=== PATIENT | female | born 1975 | race Caucasian/White ===

== ENCOUNTER 2019-01-20 14:01 | Inpatient (IN) ==
[2019-01-20] MEDS ORDERED: SODIUM CHLORIDE 0.9% 1000ML 1,000 ML IV ONE (14:13)
[2019-01-20] MEDS ORDERED: MoRPHine SULFATE 4 MG/ML 1 ML CARP\\VIAL IV STA (14:13)
[2019-01-20] MEDS ORDERED: ONDANSETRON INJ 2 MG/ML 2 ML VIAL IV STA (14:13)
[2019-01-20 14:42] LABS: Basophils # (auto) 0.03 K/uL (0-0.2); Basophils % (auto) 0.2 %; Hematocrit (blood only) 42.3 % (37-47); Immature Granulocytes # (auto) 0.02 K/uL (0.00-0.02); Immature Granulocytes % (auto) 0.2 %; Lymphocytes # (auto) 0.99 K/uL (1.2-3.4); Lymphocytes % (auto) 7.6 %; Mean Corpuscular Hgb Conc 35.5 g/dL (32-36); Mean Corpuscular Volume 90.2 fL (80-100); Mean Platelet Volume 9.1 fL (7.4-10.4); Monocytes % (auto) 5.4 %; Neutrophils # (auto) 11.21 K/uL (1.4-6.5); Neutrophils % (auto) 86.6 %; Platelet Count 356 K/uL (130-400); RDW Coefficient of Variation 12.7 % (11.5-14.5); RDW Standard Deviation 41.9 fL (36.4-46.3); Red Blood Count 4.69 M/uL (4.2-5.4); White Blood Count 12.95 K/uL (4.8-10.8)
[2019-01-20 15:07] LABS: BUN Creatinine Ratio 15.1 (10-20); Bilirubin Direct 0.1 mg/dl (0-0.2); Creatinine Clr Calc Pharmacy 111.4 ml/min; Est GFR (African American) 127.6; Est GFR (Non-African American) 110.1; Potassium 3.4 mmol/L (3.5-5.1)
[2019-01-20] MEDS ORDERED: KETOROLAC TROMETHAMINE 15 MG/ML VIAL IV STA (15:09)
[2019-01-20 15:10] LABS: Bilirubin,Total 0.5 mg/dl (0.2-1)
[2019-01-20] MEDS ORDERED: HYDROmorphone INJ 1 MG/ML SYRINGE IV STA (15:27)
[2019-01-20] MEDS ORDERED: SODIUM CHLORIDE 0.9% 1000ML 1,000 ML IV SCH (15:30)
--- NOTE | 2019-01-20 15:34 | XRay Report ---
PA CHEST WITH ABDOMINAL SERIES CLINICAL HISTORY: Epigastric abdominal pain. Nausea and vomiting. FINDINGS: A PA chest radiograph is obtained. No prior studies are available for comparison at the time of dicta tion. The cardiomediastinal silhouette is unremarkable. The lungs and pleural spaces are clear. No p neumothorax is seen. The bony thorax is grossly intact. Supine and erect abdominal radiographs are obtained. No prior studies are available for comparison at the time of dictation. There is a nonobstructed abdominal bowel gas pattern. No evidence of intrape ritoneal free air is seen. There are no abnormal abdominal calcifications. Numerous phleboliths are s een in the pelvis. The lumbosacral spine and bony pelvis appear intact. IMPRESSION: 1. No active disease in the chest. 2. Nonobstructed abdominal bowel gas pattern. Electronically signed by: Santino Underwood M.D. 01/20/2019 3:33 PM
--- NOTE | 2019-01-20 16:17 | History & Physical Report ---
Date of Service January 20, 2019 Assessment & Plan (1) Acute pancreatitis: This is a 44yo F with a PMH of anxiety, alcohol use disorder and tobacco use who presents with abdominal pain that began this morning around 10am was found to have acute pancreatitis. -Found to be hypertensive and tachycardic initially with leukocytosis of 12.95, lipase of 5234 -CT abd/pelvis with findings are consistent with acute pancreatitis. There is a 1.4 cm minimally complex fluid collection identified adjacent to the pancreatic tail that is nonspecific and may represent a small pseudocyst. Gall bladder is non-distended. A 2-3 month follow-up CT is recommended following symptom resolution for reassessment. -Keep NPO for now. Received 1.5 L of NSS in ED -Ordered additional 1 L bolus of LR. Now receiving LR @200 ml/hr -Pain control, repeat CMP in AM -Routine GI consult (2) Alcohol use disorder: History of heavy alcohol use, serum etoh level of 111, last drink late last night -Alcohol withdrawal protocol with gabapentin, IV ativan -Receiving Banana bag. Thiamine, folic acid, MV ordered for AM (3) Anxiety: Holding home Xanax -Ativan 0.5mg Q4H PRN for anxiety (4) Tobacco use disorder: Recommended cessation DVT Ppx: Fernando mcdonald Code status: FULL PCP: No PCP. Will need to establish care with PCP. Dispo: Admitted to telemetry. Plan to return home once medically stable. Patient seen in collaboration with Dr. Marroquin. Please see addendum. History of Present Illness Chief Complaint: abdominal pain Primary Care Provider: NO PCP This is a 44yo F with a PMH of anxiety, alcohol use disorder and tobacco use who presents with abdominal pain that began this morning around 10am. Pain is described as sharp, stabbing and constant, located in upper epigastrium with radiation down abdomen as well as towards back. Tried pepto bismol and zofran at home without alleviation. Has had multiple episodes of bilious emesis and is still nauseated. Also endorses subjective fever and chills. Has history of alcohol use, endorsing 3 vodka mixed drinks daily. Went out last night and had a few beers, with last drink around 0100. Did experience abdominal pain similar to this back in November and was evaluated at [facility] in [place], [place]. Reports being told then that it was caused by gall bladder sludge. Followed up with general surgeon but felt that surgery was too expensive for her to pay. Denies lightheadedness, headache, visual changes, cough, chest pain, palpitations, shortness of breath, dysuria, constipation or diarrhea. Only daily home medication is Xanax. Found to be hypertensive and tachycardic initially. Leukocytosis of 12.95, lipase of 5234. CT abd/pelvis with findings are consistent with acute pancreatitis. There is a 1.4 cm minimally complex fluid collection identified adjacent to the pancreatic tail that is nonspecific and may represent a small pseudocyst. Gall bladder is non-distended. Allergies Allergy/AdvReac Type Severity Reaction Status Date / Time Sulfa (Sulfonamide Allergy Unknown Unverified 01/20/19 15:03 Antibiotics) Home Medications Home Medications Medication Instructions Recorded Confirmed Type alprazolam 0.5 mg PO DAILY 01/20/19 01/20/19 History Past Med/Surg History Medical History Anxiety (Chronic) Tobacco use disorder (Chronic) Alcohol use disorder (Chronic) Alcohol use disorder (Chronic) Anxiety (Chronic) No significant past surgical history (Chronic) Tobacco use disorder (Chronic) Family History Other Dyslipidemia Heart disease Hypertension Social History Preferred Language: Belarusian Communication Ability: Effective Highway Maintenance Supervisor Required: Yes Beliefs That Will Affect Care: None Current Living Situation: Other Other Information That Helps Us Care for You: No Feels Safe at Home: Yes Safety Concerns: Feels Safe At This Time Smoking Status: Current every day smoker Tobacco Type: cigarettes Cigarettes Per Day: 5 Hx Alcohol Use: Yes Alcohol type: hard liquor Alcohol Intake Frequency Comment: last night Hx Substance Use: No Review of Systems Review of Systems: At least ten systems reviewed and negative except as noted in the HPI. Physical Exam Physical Exam: General Appearance: WD/WN, thin, in acute distress from abdominal pain, anxious Head: normocephalic, atraumatic Eyes: normal inspection, PERRL, EOMI ENT: hearing grossly normal, pharynx normal (dry mucous membranes) Neck: supple, no JVD, no adenopathy Respiratory/Chest: lungs clear to auscultation. No wheezes, rales or rhonci. No respiratory distress or accessory muscle use Cardiovascular: Tachycardic, regular rhythm, no murmur, normal peripheral pulses Abdomen/GI: normal bowel sounds, epigastrium tender to palpation, no distention, + guarding Extremities/Musculoskelatal: normal inspection, no calf tenderness, normal capillary refill, no pedal edema Neurologic/Psych: alert, oriented x 3, anxious Skin: normal color, warm/dry Results & Data Vital Signs (Past 12 Hours) Vital Signs Temp Pulse Pulse Resp BP BP Pulse Ox 01/20/19 15:13 94 H 18 180/123 H 99 01/20/19 14:31 94 H 18 167/127 H 100 01/20/19 14:13 36.8 C 99 H 13 169/139 H 98 01/20/19 14:06 85 22 169/139 H 99 Laboratory Results Short CBC 01/20/19 Range/Units 14:32 WBC 12.95 H (4.8-10.8) K/uL Hgb 15.0 (12.0-16.0) g/dL Hct 42.3 (37-47) % Plt Count 356 (130-400) K/uL BMP 01/20/19 14:32 Sodium 140 Potassium 3.4 L Chloride 99 Carbon Dioxide 28 BUN 10 Creatinine 0.64 Glucose 111 H Calcium 9.0 Liver Function 01/20/19 Range/Units 14:32 Total Bilirubin 0.5 (0.2-1) mg/dl Direct Bilirubin 0.1 (0-0.2) mg/dl AST 32 (15-37) U/L ALT 33 (12-78) U/L Alkaline Phosphatase 97 (45-117) U/L Albumin 4.0 (3.4-5.0) gm/dl Urine 01/20/19 Range/Units 16:50 Urine Color Yellow Urine Appearance Clear (Clear) Urine pH 6.5 (4.5-7.5) Ur Specific [place] 1.016 (1.000-1.030) Urine Protein Negative (Negative) Urine Glucose (UA) Negative (Negative) Diagnostic Findings Chest/abdomen XR: IMPRESSION: 1. No active disease in the chest. 2. Non-obstructed abdominal bowel gas pattern. CT abdomen: IMPRESSION: 1. Findings are consistent with acute pancreatitis. 2. The gland enhances homogeneously. 3. There is a 1.4 cm minimally complex fluid collection identified adjacent to the pancreatic tail. This is nonspecific and may represent a small pseudocyst. A 2-3 month follow-up CT is recommended following symptom resolution for reassessment. 4. Hepatomegaly and hepatic steatosis. 5. Mildly enlarged peripancreatic lymph nodes are likely on a reactive basis. 6. There is a small one of upper abdominal ascites. Supervising Physician Co-Signing Physician Notes Attending Addendum: delayed entry date of service noted above care coordinated with GUILHERME Eaton please refer to her notes for full details, I agree with her notes patient seen and examined, records reviewed by myself as well on exam, patient seen sitting up in bed, RN at bedside thru whole encounter having epigastric pain, just received analgesics, pain being relieved occasional nausea no chest pain, dyspnea, headache, dizziness no other symptoms VS noted and reviewed oriented x 3 , not in distress, speaks in sentences with no effort nor accessory muscle use normal rate, regular rhythm, no murmurs clear breath sounds bilaterally non distended, soft,mildly tender no bipedal edema, erythema, warmth no neuro deficits WBC 12k Lipase 25545 CT abdomen IMPRESSION: 1. Findings are consistent with acute pancreatitis. 2. The gland enhances homogeneously. 3. There is a 1.4 cm minimally complex fluid collection identified adjacent to the pancreatic tail. This is nonspecific and may represent a small pseudocyst. A 2-3 month follow-up CT is recommended following symptom resolution for reassessment. 4. Hepatomegaly and hepatic steatosis. 5. Mildly enlarged peripancreatic lymph nodes are likely on a reactive basis. 6. There is a small one of upper abdominal ascites. ASSESSMENT AND PLAN ACUTE PANCREATITIS likely Alcohol induced received IV fluids bolus continue LR at 200cc/hr NPO PRN analgesics GI consulted HYPERTENSION likely from Alcohol Intoxication PRN Clonidine monitor r/o underlying essential HTN ALCOHOLISM alcohol withdrawal protocol other diagnoses and plan of care as per GUILHERME Eaton's notes Red Marroquin MD
[2019-01-20] MEDS ORDERED: LORazepam 1 MG/2 ML VIAL IV PRN (16:56)
[2019-01-20] MEDS ORDERED: GABAPENTIN 1200MG ALCOHOL WITHDRAWAL LOAD PO STA (16:56)
[2019-01-20] MEDS ORDERED: MULTI-VITAMIN INFUSION 10 ML, THIAMINE HCL 100 MG, FOLIC ACID 1 MG in SODIUM CHLORIDE 0... IV SCH (17:00)
[2019-01-20] MEDS ORDERED: LORazepam 2 MG/4 ML VIAL ONE ×2 (17:04→17:58)
[2019-01-20] MEDS ORDERED: LACTATED RINGER'S 1,000 ML IV ONE (17:06)
[2019-01-20 17:07] LABS: Appearance Urine Clear (Clear); Bilirubin Urine Negative (Negative); Blood Urine Negative (Negative); Color Urine Yellow; Glucose Urine UA Negative (Negative); Ketones Urine 1+ (Negative); Leukocyte Esterase Urine Negative (Negative); Nitrite Urine Negative (Negative); Protein Urine Negative (Negative); Specific Gravity Urine 1.016 (1.000-1.030); Urobilinogen Urine Negative (Negative); pH Urine 6.5 (4.5-7.5)
--- NOTE | 2019-01-20 17:21 | Emergency Department Note ---
Entered by Tammie Morales acting as a scribe for Niels Chery History of Present Illness General Chief complaint: Abdominal Pain Time Seen by Provider: 01/20/19 14:08 Source: patient History of Present Illness Provider complaint: abdominal pain Onset (ago): hour(s) 4 Location: abdomen Quality: + aching Relieved By: + none Associated symptoms: + nausea/vomiting and + other (-dark or bloody stools) The patient is a 44 year old male who presents to the Emergency Room with complaints of aching abdominal pain. Pain is located in the epigastric area. The patient states that she was out drinking last night and came home and sto pped drinking at 100 this morning. She states that she only had 3 beers last night. The patient states that she has had abdominal pain since 1000 today. She reports that she has had nausea and vomiting all day. The patient denies any bloody vomit or coffee-ground emesis. The patient states that she is no and she had her period recently. She denies any substance abuse. She denies any recent abdominal surgeries. She notes that she is a smoker. Per EMS, the patient has daily medications of Zofran and Tylenol. Home Medications Home Medications Medication Instructions Recorded Confirmed Type alprazolam 0.5 mg PO DAILY 01/20/19 01/20/19 History Allergies Allergy/AdvReac Type Severity Reaction Status Date / Time Sulfa (Sulfonamide Allergy Unknown Unverified 01/20/19 15:03 Antibiotics) Past Med/Surg History Medical History No significant past surgical history Family History Other Dyslipidemia Heart disease Hypertension Social History Feels Safe at Home: Yes Smoking Status: Current every day smoker Cigarettes Per Day: 5 Hx Alcohol Use: Yes Alcohol type: hard liquor Alcohol Intake Frequency Comment: last night Review of Systems See HPI for pertinent positives & negatives. and A total of 10 systems reviewed and were otherwise negative Physical Exam Vital Signs Vital Signs - 24 hr 01/20/19 14:06 01/20/19 14:13 01/20/19 14:31 Temperature 36.8 C Temperature Source Oral Sepsis Recent Fever Within 48 Hours No Sepsis Action Taken by Nursing No Action Required Pulse Rate 85 99 H 94 H Pulse Rate [Apical] Pulse Rate from SpO2 Sensor 88 93 H Respiratory Rate 22 13 18 Respiratory Effort / Characteristics Non-Labored Spontaneous Respiratory Depth Normal Blood Pressure 169/139 H 169/139 H 167/127 H Blood Pressure [Right Arm] Blood Pressure Mean 149 149 140 Blood Pressure Mean [Right Arm] Blood Pressure Position Sitting Pulse Oximetry 99 98 100 Oxygen Delivery Method Room Air 01/20/19 15:13 01/20/19 16:00 01/20/19 17:17 Temperature Temperature Source Sepsis Recent Fever Within 48 Hours Sepsis Action Taken by Nursing Pulse Rate 82 Pulse Rate [Apical] 94 H 91 H Pulse Rate from SpO2 Sensor Respiratory Rate 18 12 19 Respiratory Effort / Characteristics Non-Labored Spontaneous Respiratory Depth Blood Pressure 173/125 H Blood Pressure [Right Arm] 180/123 H 177/131 H Blood Pressure Mean Blood Pressure Mean [Right Arm] 142 146 Blood Pressure Position Pulse Oximetry 99 98 Oxygen Delivery Method Room Air Room Air GENERAL: She smells of alcohol. She is oriented to person, place, and time. She appears well-developed and well-nourished. She does not appear distressed. HENT: Exam performed. Head: Normocephalic and atraumatic. Right Ear: External ear normal. No mastoid tenderness. Left Ear: External ear normal. No mastoid tenderness. Mouth/Throat: The oropharynx is clear and moist. No trismus in the jaw. No dental abscesses or uvula swelling. No oropharyngeal exudate or tonsillar abscesses. EYES: Conjunctivae and EOM are normal. Pupils are equal, round, and reactive to light. Right eye exhibits no discharge. Left eye exhibits no discharge. No scleral icterus. NECK: Normal range of motion. Neck supple. No JVD present. No spinous process tenderness present. No carotid bruit present. No rigidity. No tracheal deviation and normal range of motion present. No Brudzinski's sign and no Kernig's sign noted. CV: Normal rate, regular rhythm, normal heart sounds and intact distal pulses. There is no peripheral edema. Palpable radial pulses bue. PULM/CHEST: Effort normal and breath sounds normal. No respiratory distress. No stridor. She has no wheezes. She has no rales. Chest Wall: She exhibits no tenderness. ABD: Pain on palpations on epigastric area. The abdomen is soft. Bowel sounds are normal. She has no distension. No mass is present. There is no rebound, no guarding, no Kidd's sign and no tenderness at McBurney's point. Rovsig negative MUSC/SKEL: Normal range of motion. There is no peripheral edema, tenderness or deformity. LYMPH: No cervical adenopathy. NEURO: She is alert and oriented to person, place, and time. She has normal strength. No cranial nerve deficit or sensory deficit. Coordination and gait normal. GCS eye subscore is 4. GCS verbal subscore is 5. GCS motor subscore is 6. cerbellar tests wnl. SKIN: Skin is warm and dry. She is not diaphoretic. PSYCH: She has a normal mood and affect. Her behavior is normal. Judgment and thought content normal. Course 1405: The patient was evaluated in room B6, and a complete history and physical examination were performed. 1550: The patient's labs show elevated lipase. She is suffering alcohol induced pancreatitis. She required multiple doses of analgesics. I discussed the patient's case with Dr. Rolly Torres and he will accept the patient for further evaluation. Reevaluation(s) Reevaluation #1: Dr. Rolly Royalist Time: 15:50 Administered Medications Sodium Chloride (Nss 1000ml) 1,000 mls @ 125 mls/hr IV .Q8H LINDA Stop: 02/19/19 15:29 Last Infusion: 01/20/19 17:12 Dose: 0 mls/hr Documented by: [id number] Admin: 01/20/19 15:35 Dose: 125 mls/hr Documented by: [id number] Discontinued Medications Hydromorphone HCl (Dilaudid) 1 mg IV NOW STA Stop: 01/20/19 15:28 Last Admin: 01/20/19 15:32 Dose: 1 mg Documented by: [id number] Sodium Chloride (Nss 1000ml) 1,000 mls @ 999 mls/hr IV .Q1H1M ONE Stop: 01/20/19 15:13 Last Infusion: 01/20/19 15:35 Dose: 0 mls/hr Documented by: [id number] Admin: 01/20/19 14:33 Dose: 999 mls/hr Documented by: [id number] Ketorolac Tromethamine (Toradol) 15 mg IV NOW STA Stop: 01/20/19 15:10 Last Admin: 01/20/19 15:12 Dose: 15 mg Documented by: [id number] Lorazepam (Ativan) Confirm Administered Dose 2 mg .ROUTE .STK-MED ONE Stop: 01/20/19 17:05 Last Admin: 01/20/19 17:07 Dose: 1 mg Documented by: [id number] Morphine Sulfate (Morphine Sulfate) 4 mg IV NOW STA Stop: 01/20/19 14:14 Last Admin: 01/20/19 14:33 Dose: 4 mg Documented by: [id number] Ondansetron HCl (Zofran) 4 mg IV NOW STA Stop: 01/20/19 14:14 Last Admin: 01/20/19 14:33 Dose: 4 mg Documented by: [id number] Medical Decision Making Medical Records Attestation: I reviewed the patient's medical records. Home Medications Current Medication List: was personally reviewed by me Laboratory Data Attestation: I reviewed the patient's lab results. Result diagrams: 01/20/19 14:32 01/20/19 14:32 Lab Results 01/20/19 01/20/19 01/20/19 Range/Units 14:32 14:32 16:29 WBC 12.95 H (4.8-10.8) K/uL RBC 4.69 (4.2-5.4) M/uL Hgb 15.0 (12.0-16.0) g/dL Hct 42.3 (37-47) % MCV 90.2 (80-100) fL MCH 32.0 (25-34) pg MCHC 35.5 (32-36) g/dL RDW Std Deviation 41.9 (36.4-46.3) fL RDW Coeff of [place]ala 12.7 (11.5-14.5) % Plt Count 356 (130-400) K/uL MPV 9.1 (7.4-10.4) fL Immature Gran % (Auto) 0.2 % Neut % (Auto) 86.6 % Lymph % (Auto) 7.6 % [place] % (Auto) 5.4 % Eos % (Auto) 0.0 % Baso % (Auto) 0.2 % Immature Gran # (Auto) 0.02 (0.00-0.02) K/uL Neut # (Auto) 11.21 H (1.4-6.5) K/uL Lymph # (Auto) 0.99 L (1.2-3.4) K/uL [place] # (Auto) 0.70 H (0.11-0.59) K/uL Eos # (Auto) 0.00 (0-0.5) K/uL Baso # (Auto) 0.03 (0-0.2) K/uL Sodium 140 (136-145) mmol/L Potassium 3.4 L (3.5-5.1) mmol/L Chloride 99 (98-107) mmol/L Carbon Dioxide 28 (21-32) mmol/L Anion Gap 13.0 H (3-11) BUN 10 (7-18) mg/dl Creatinine 0.64 (0.6-1.2) mg/dl Est Cr Clr Drug Dosing 111.4 ml/min Est GFR ( Amer) 127.6 Est GFR (Non-Af Amer) 110.1 BUN/Creatinine Ratio 15.1 (10-20) Glucose 111 H (70-99) mg/dl Calcium 9.0 (8.5-10.1) mg/dl Total Bilirubin 0.5 (0.2-1) mg/dl Direct Bilirubin 0.1 (0-0.2) mg/dl AST 32 (15-37) U/L ALT 33 (12-78) U/L Alkaline Phosphatase 97 (45-117) U/L Total Protein 8.0 (6.4-8.2) gm/dl Albumin 4.0 (3.4-5.0) gm/dl Lipase 5234 H (73-393) U/L Urine Color Urine Appearance (Clear) Urine pH (4.5-7.5) Ur Specific [place] (1.000-1.030) Urine Protein (Negative) Urine Glucose (UA) (Negative) Urine Ketones (Negative) Urine Blood (Negative) Urine Nitrite (Negative) Urine Bilirubin (Negative) Urine Urobilinogen (Negative) Ur Leukocyte Esterase (Negative) POC Ur Test (NEG) Ethyl Alcohol mg/dL 111.0 H (0-3) mg/dl 01/20/19 01/20/19 Range/Units 16:50 16:50 WBC (4.8-10.8) K/uL RBC (4.2-5.4) M/uL Hgb (12.0-16.0) g/dL Hct (37-47) % MCV (80-100) fL MCH (25-34) pg MCHC (32-36) g/dL RDW Std Deviation (36.4-46.3) fL RDW Coeff of [place]ala (11.5-14.5) % Plt Count (130-400) K/uL MPV (7.4-10.4) fL Immature Gran % (Auto) % Neut % (Auto) % Lymph % (Auto) % [place] % (Auto) % Eos % (Auto) % Baso % (Auto) % Immature Gran # (Auto) (0.00-0.02) K/uL Neut # (Auto) (1.4-6.5) K/uL Lymph # (Auto) (1.2-3.4) K/uL [place] # (Auto) (0.11-0.59) K/uL Eos # (Auto) (0-0.5) K/uL Baso # (Auto) (0-0.2) K/uL Sodium (136-145) mmol/L Potassium (3.5-5.1) mmol/L Chloride (98-107) mmol/L Carbon Dioxide (21-32) mmol/L Anion Gap (3-11) BUN (7-18) mg/dl Creatinine (0.6-1.2) mg/dl Est Cr Clr Drug Dosing ml/min Est GFR ( Amer) Est GFR (Non-Af Amer) BUN/Creatinine Ratio (10-20) Glucose (70-99) mg/dl Calcium (8.5-10.1) mg/dl Total Bilirubin (0.2-1) mg/dl Direct Bilirubin (0-0.2) mg/dl AST (15-37) U/L ALT (12-78) U/L Alkaline Phosphatase (45-117) U/L Total Protein (6.4-8.2) gm/dl Albumin (3.4-5.0) gm/dl Lipase (73-393) U/L Urine Color Yellow Urine Appearance Clear (Clear) Urine pH 6.5 (4.5-7.5) Ur Specific [place] 1.016 (1.000-1.030) Urine Protein Negative (Negative) Urine Glucose (UA) Negative (Negative) Urine Ketones 1+ H (Negative) Urine Blood Negative (Negative) Urine Nitrite Negative (Negative) Urine Bilirubin Negative (Negative) Urine Urobilinogen Negative (Negative) Ur Leukocyte Esterase Negative (Negative) POC Ur Test NEG (NEG) Ethyl Alcohol mg/dL (0-3) mg/dl Imaging Data Radiologist's Impression: Radiology results as stated below per my review and the radiologist's interpretation: PA CHEST WITH ABDOMINAL SERIES CLINICAL HISTORY: Epigastric abdominal pain. Nausea and vomiting. FINDINGS: A PA chest radiograph is obtained. No prior studies are available for comparison at the time of dictation. The cardiomediastinal silhouette is unremarkable. The lungs and pleural spaces are clear. No pneumothorax is seen. The bony thorax is grossly intact. Supine and erect abdominal radiographs are obtained. No prior studies are available for comparison at the time of dictation. There is a nonobstructed abdominal bowel gas pattern. No evidence of intraperitoneal free air is seen. There are no abnormal abdominal calcifications. Numerous phleboliths are seen in the pelvis. The lumbosacral spine and bony pelvis appear intact. IMPRESSION: 1. No active disease in the chest. 2. Nonobstructed abdominal bowel gas pattern. Electronically signed by: Santino Underwood M.D. 01/20/2019 3:33 PM ECG Data Attestation: I personally reviewed and interpreted this ECG as follows: Indication: abdominal pain Rate (beats per minute): 84 Rhythm: sinus rhythm Findings: no ST depression and no ST elevation Blood Pressure Blood Pressure Findings: Elevated blood pressure Blood Pressure Disposition: elevated BP felt to be situational MDM Narrative The patient's labs show elevated lipase. She is suffering alcohol induced pancreatitis. She required multiple doses of analgesics. I discussed the patient's case with Dr. Rolly Lopez Hospitalist and he will accept the patient for further evaluation. Impression & Plan Pancreatitis Discharge Plan Visit Data Chief Complaint: Abdominal Pain ED Provider: Niels Chery Discharge Problem: Pancreatitis Patient Disposition: Being Evaluated by Hospitalist Discharge Instructions Interventions: ED Discharge Assessment Last Done: 01/20/19 17:17 Forms Stand Alone Forms: Call Back Authorization, BMP [employer] Prescriptions Prescriptions: No Action alprazolam 0.5 mg tablet 0.5 mg PO DAILY RF: 0 Referrals Referrals: PCP,NO [Primary Care Provider] - Discharge Problem: Pancreatitis Qualifiers: Chronicity: acute Pancreatitis type: alcohol induced Acute pancreatitis complication: no infection or necrosis Qualified Code(s): K85.20 - Alcohol i nduced acute pancreatitis without necrosis or infection The scribe's documentation has been prepared under my direction and personally reviewed by me in its entirety. I confirm that the note above accurately reflects all work, treatment, procedures, and medical decision making performed by me.
[2019-01-20] MEDS ORDERED: IOVERSOL 100ml IV PRN (17:29)
[2019-01-20] MEDS ORDERED: PROMETHAZINE HCL 25 MG in SODIUM CHLORIDE 0.9% 50 ML IV PRN (17:45)
--- NOTE | 2019-01-20 17:45 | CT Scan Report ---
CT SCAN OF THE ABDOMEN WITH IV CONTRAST CLINICAL HISTORY: Epigastric abdominal pain. Acute pancreatitis. COMPARISON STUDY: Abdominal radiograph dated 01/20/2019. TECHNIQUE: Following the IV administration of 87 cc of Optiray 320, CT scan of the abdomen is perfor med from the lung bases to the pelvic inlet. Images are reviewed in the axial, sagittal, and coronal planes. IV contrast was administered without complication. A dose lowering technique was utilized adh ering to the principles of ALARA. CT DOSE: 167.11 mGy.cm FINDINGS: Lung bases: The heart is normal in size and without pericardial effusion. The lung bases are clear. Liver: The contrast-enhanced liver is mildly enlarged, measuring 18.4 cm in length. The liver demonst rates diffusely diminished attenuation consistent with hepatic steatosis. There is no intrahepatic bi liary ductal dilatation. The hepatic veins and portal veins are patent. Gallbladder: The gallbladder is nondistended but otherwise normal in appearance. Spleen: Normal in size and attenuation. Pancreas: There is moderate glandular atrophy. There is peripancreatic stranding and surrounding flui d consistent with acute pancreatitis. A 1.4 cm minimally complex fluid collection is suggested adjace nt the pancreatic tail on image #96. The pancreatic duct is normal in caliber. The gland enhances endy ogeneously. The splenic vein is patent. Adrenal glands: Unremarkable. Kidneys: The contrast enhanced kidneys are normal in size and without hydronephrosis. The kidneys enh ance end excrete symmetrically. Abdominal vasculature: The abdominal aorta is normal in course and caliber. Bowel: The small bowel and colon are normal in course and caliber. The partially visualized appendix appendix is normal. Peritoneum: There is a small volume of upper abdominal ascites. No intraperitoneal free air is seen. There is a small fat-containing umbilical hernia. Lymphadenopathy: Prominent peripancreatic lymph nodes measure up to 7 mm short axis and are likely on a reactive basis. Skeletal structures: No lytic or blastic lesions are seen. IMPRESSION: 1. Findings are consistent with acute pancreatitis. 2. The gland enhances homogeneously. 3. There is a 1.4 cm minimally complex fluid collection identified adjacent to the pancreatic tail. T his is nonspecific and may represent a small pseudocyst. A 2-3 month follow-up CT is recommended foll owing symptom resolution for reassessment. 4. Hepatomegaly and hepatic steatosis. 5. Mildly enlarged peripancreatic lymph nodes are likely on a reactive basis. 6. There is a small one of upper abdominal ascites. Electronically signed by: Santino Underwood M.D. 01/20/2019 5:43 PM
[2019-01-20] MEDS ORDERED: GABAPENTIN 600 MG TAB PO SCH (18:00)
[2019-01-20] MEDS ORDERED: HYDROmorphone INJ 0.5 MG/0.5 ML SYR ONE (18:00)
[2019-01-20] MEDS ORDERED: ONDANSETRON INJ 2 MG/ML 2 ML VIAL ONE (18:01)
[2019-01-20] MEDS: LACTATED RINGER'S 1,000 ML IV SCH ×2 (18:39→23:29)
[2019-01-20] MEDS: HYDROmorphone INJ 0.5 MG/0.5 ML SYR IV PRN ×2 (19:16→22:44)
[2019-01-20] MEDS: THIAMINE HCL 100 MG TAB PO SCH (19:19)
[2019-01-20] MEDS: cloNIDine HCl 0.1 MG TAB PO PRN (20:34)
[2019-01-20] MEDS: KETOROLAC TROMETHAMINE 15 MG/ML VIAL IV PRN (20:34)
[2019-01-20] MEDS ORDERED: cloNIDine HCl 0.1 MG TAB PO STA (22:51)
[2019-01-20] MEDS: GABAPENTIN 600 MG TAB PO SCH (23:31)
[2019-01-21] MEDS: HYDROmorphone INJ 0.5 MG/0.5 ML SYR IV PRN ×6 (01:49→23:28)
[2019-01-21] MEDS: LACTATED RINGER'S 1,000 ML IV SCH ×5 (04:19→23:27)
[2019-01-21] MEDS: cloNIDine HCl 0.1 MG TAB PO PRN (04:21)
[2019-01-21] MEDS: KETOROLAC TROMETHAMINE 15 MG/ML VIAL IV PRN ×3 (04:21→21:09)
[2019-01-21] MEDS: GABAPENTIN 600 MG TAB PO SCH ×3 (06:29→21:09)
[2019-01-21 06:41] LABS: Basophils # (auto) 0.03 K/uL (0-0.2); Basophils % (auto) 0.3 %; Eosinophils # (auto) 0.02 K/uL (0-0.5); Eosinophils % (auto) 0.2 %; Hematocrit (blood only) 35.5 % (37-47); Hemoglobin 12.4 g/dL (12.0-16.0); Immature Granulocytes # (auto) 0.03 K/uL (0.00-0.02); Immature Granulocytes % (auto) 0.3 %; Lymphocytes # (auto) 1.22 K/uL (1.2-3.4); Lymphocytes % (auto) 12.7 %; Mean Corpuscular Hgb Conc 34.9 g/dL (32-36); Mean Corpuscular Volume 90.3 fL (80-100); Mean Platelet Volume 9.4 fL (7.4-10.4); Monocytes # (auto) 1.13 K/uL (0.11-0.59); Monocytes % (auto) 11.8 %; Neutrophils # (auto) 7.14 K/uL (1.4-6.5); Neutrophils % (auto) 74.7 %; Platelet Count 266 K/uL (130-400); RDW Coefficient of Variation 12.5 % (11.5-14.5); RDW Standard Deviation 41.7 fL (36.4-46.3); Red Blood Count 3.93 M/uL (4.2-5.4); White Blood Count 9.57 K/uL (4.8-10.8)
[2019-01-21 07:21] LABS: Albumin Level 3.3 gm/dl (3.4-5.0); BUN Creatinine Ratio 8.4 (10-20); Calcium 8.1 mg/dl (8.5-10.1); Creatinine Clr Calc Pharmacy 134.5 ml/min; Est GFR (African American) 135.7; Est GFR (Non-African American) 117.1; Globulin 3.2 gm/dl (2.5-4.0); Potassium 3.3 mmol/L (3.5-5.1); Total Protein 6.5 gm/dl (6.4-8.2)
[2019-01-21] MEDS: THIAMINE HCL 100 MG TAB PO SCH (08:10)
[2019-01-21] MEDS: FOLIC ACID 1 MG TAB PO SCH (08:10)
[2019-01-21] MEDS: MULTIVITAMIN TAB PO SCH (08:10)
[2019-01-21] MEDS: LORazepam 0.5 MG/1 ML VIAL IV PRN (08:22)
--- NOTE | 2019-01-21 10:32 | Gastrointestinal Consultation ---
Date of Consultation January 21, 2019 Assessment & Plan (1) Acute pancreatitis: 44 year old female with history of ETOH/biliary induced pancreatitis x 2 admitted through the ED w/ return of upper abdominal pain, nausea, vomiting w/ CT evidence and question of 1.4 CM fluid collection of the pancreatic tail - Treat the pancreatitis - LR 200/250 mL/hr - NPO for bowel rest - Analgesia PRN - Antiemetics PRN - Will need OP CT abd/pelvis w/ contrast to ensure resolution of fluid collection - This will need to be arranged through her PCP as she plans on following up with her regular doctors in [place] - Strict ETOH cessation and sobriety was discussed - She verbalized understanding - History of gallstones/sludge - She had to cancel her cholecystectomy - No current imaging w/ evidence of stones/sludge - Would recommend a general surgery consultation to discuss cholecystectomy Thank you for allowing us to participate in the care of this patient. Please call with any acute changes, questions or concerns. Please see addendum below with additional recommendation from my supervising physician. Present on Admission?: Yes Supervising Physician Co-Signing Physician Notes I have seen and examined the patient with ESTRADA Castro whose note reflects our findings and plan. History of Present Illness Reason for Consultation: pancreatitis Requesting Physician: Lucas Attending Physician: Nikita Zavala MD History of Present Illness 44 year old female with history of ETOH abuse, tobacco abuse, GB sludge, prior pancreatitis x 2, anxiety who presented through the ED for evaluation of abdominal pain, nausea and vomiting - GI asked to evaluate for pancreatits. Pt was seen and evaluated, chart reviewed. She notes prior episode of pancreatitis x 2. At this time she was told this was due to passing GB stones and GB sludge. She was supposed to have her GB out as an outpatient last month in [place] but this was cancelled due to finances. She notes that since her first episode of pancreatitis, she has had periods of sobriety but has been using ETOH regularly since September. Endorses about 4-5 vodka drinks daily. Last drink was prior to arrival (4 beers) and she developed severe upper abd pain. Radiated through back. Associated w/ nausea/vomiting. Identical pain to prior episodes. This AM pain is more manageable but still requiring narcotic analgesia. She was hypertensive, tachycardiac on admission w mild leukocytosis but has remained afebrile. She was started on LR bolus and maintenance fluid, CT w/ acute pancreatitis ? of fluid collection. Lipase elevated w/ normal LFTs. No evidence of GAVIN Has history of GB stones/sludge Prior episodes pancreatitis x 2 CT: Findings are consistent with acute pancreatitis. The gland enhances homogeneously. There is a 1.4 cm minimally complex fluid collection identified adjacent to the pancreatic tail. This is nonspecific and may represent a small pseudocyst. A 2-3 month follow-up CT is recommended following symptom resolution for reassessment. Hepatomegaly and hepatic steatosis. Mildly enlarged peripancreatic lymph nodes are likely on a reactive basis. There is a small one of upper abdominal ascites. Allergies Allergy/AdvReac Type Severity Reaction Status Date / Time Sulfa (Sulfonamide Allergy Unknown Unverified 01/20/19 15:03 Antibiotics) Home Medications Home Medications Medication Instructions Recorded Confirmed Type alprazolam 0.5 mg PO DAILY 01/20/19 01/20/19 History Patient History Medical History Anxiety (Chronic) Tobacco use disorder (Chronic) Alcohol use disorder (Chronic) Alcohol use disorder (Chronic) Anxiety (Chronic) No significant past surgical history (Chronic) Tobacco use disorder (Chronic) Family History Other Dyslipidemia Heart disease Hypertension Social History Preferred Language: Chilean Communication Ability: Effective [employer] Project [employer] Required: Yes Beliefs That Will Affect Care: None Current Living Situation: Other Other Information That Helps Us Care for You: No Feels Safe at Home: Yes Safety Concerns: Feels Safe At This Time Smoking Status: Current every day smoker Tobacco Type: cigarettes Cigarettes P er Day: 5 Hx Alcohol Use: Yes Alcohol type: hard liquor Alcohol Intake Frequency Comment: last night Hx Substance Use: No Review of Systems Constitutional: no fever, no body aches and no insomnia Respiratory: no cough, no dyspnea and no wheezing Cardiovascular: no chest pain, no radiating jaw, neck or arm pain and no cl audication Gastrointestinal: + abdominal pain, + nausea and + vomiting Physical Exam Constitutional: WD/WN, vitals as above Respiratory: normal respiratory effort, lungs clear to auscultation Cardiovascular: Rate/Rhythm: regular rhythm and + tachycardic Gastrointestinal (Abdomen): Inspection/Auscultation: abdomen normal to inspection and normal bowel sounds Percussion/Palpation: + abdomen tender and abdomen soft; no guarding and abdomen not rigid Skin: no rashes, warm and dry Results & Data Vital Signs (Past 12 Hours) Vital Signs Temp Pulse Pulse Pulse Resp BP Pulse Ox 01/21/19 07:41 37.1 C 91 H 20 130/91 98 01/21/19 03:15 37.1 C 89 18 176/104 H 98 01/20/19 23:19 37.7 C H 99 H 15 168/97 H 99 01/20/19 23:14 100 H 01/20/19 22:38 37.1 C 96 H 20 185/120 H 96 Laboratory Results 01/21/19 01/21/19 01/20/19 Range/Units 05:51 05:51 17:21 WBC 9.57 (4.8-10.8) K/uL RBC 3.93 L (4.2-5.4) M/uL Hgb 12.4 (12.0-16.0) g/dL Hct 35.5 L (37-47) % MCV 90.3 (80-100) fL MCH 31.6 (25-34) pg MCHC 34.9 (32-36) g/dL RDW Std Deviation 41.7 (36.4-46.3) fL RDW Coeff of Lala 12.5 (11.5-14.5) % Plt Count 266 (130-400) K/uL MPV 9.4 (7.4-10.4) fL Immature Gran % (Auto) 0.3 % Neut % (Auto) 74.7 % Lymph % (Auto) 12.7 % [place] % (Auto) 11.8 % Eos % (Auto) 0.2 % Baso % (Auto) 0.3 % Immature Gran # (Auto) 0.03 H (0.00-0.02) K/uL Neut # (Auto) 7.14 H (1.4-6.5) K/uL Lymph # (Auto) 1.22 (1.2-3.4) K/uL [place] # (Auto) 1.13 H (0.11-0.59) K/uL Eos # (Auto) 0.02 (0-0.5) K/uL Baso # (Auto) 0.03 (0-0.2) K/uL Sodium 133 L (136-145) mmol/L Potassium 3.3 L (3.5-5.1) mmol/L Chloride 97 L (98-107) mmol/L Carbon Dioxide 30 (21-32) mmol/L Anion Gap 6.0 (3-11) BUN 4 L D (7-18) mg/dl Creatinine 0.53 L (0.6-1.2) mg/dl Est Cr Clr Drug Dosing 134.5 ml/min Est GFR ( Amer) 135.7 Est GFR (Non-Af Amer) 117.1 BUN/Creatinine Ratio 8.4 L (10-20) Glucose 84 (70-99) mg/dl Calcium 8.1 L (8.5-10.1) mg/dl Total Bilirubin 1.0 D (0.2-1) mg/dl Direct Bilirubin (0-0.2) mg/dl AST 23 (15-37) U/L ALT 25 (12-78) U/L Alkaline Phosphatase 86 (45-117) U/L Total Protein 6.5 (6.4-8.2) gm/dl Albumin 3.3 L (3.4-5.0) gm/dl Globulin 3.2 (2.5-4.0) gm/dl Albumin/Globulin Ratio 1.0 (0.9-2) Lipase 1572 H (73-393) U/L Folate 6.66 (>5.38) ng/ml Urine Color Urine Appearance (Clear) Urine pH (4.5-7.5) Ur Specific [place] (1.000-1.030) Urine Protein (Negative) Urine Glucose (UA) (Negative) Urine Ketones (Negative) Urine Blood (Negative) Urine Nitrite (Negative) Urine Bilirubin (Negative) Urine Urobilinogen (Negative) Ur Leukocyte Esterase (Negative) POC Ur Test (NEG) Ethyl Alcohol mg/dL (0-3) mg/dl 01/20/19 01/20/19 01/20/19 Range/Units 16:50 16:50 16:29 WBC (4.8-10.8) K/uL RBC (4.2-5.4) M/uL Hgb (12.0-16.0) g/dL Hct (37-47) % MCV (80-100) fL MCH (25-34) pg MCHC (32-36) g/dL RDW Std Deviation (36.4-46.3) fL RDW Coeff of Lala (11.5-14.5) % Plt Count (130-400) K/uL MPV (7.4-10.4) fL Immature Gran % (Auto) % Neut % (Auto) % Lymph % (Auto) % [place] % (Auto) % Eos % (Auto) % Baso % (Auto) % Immature Gran # (Auto) (0.00-0.02) K/uL Neut # (Auto) (1.4-6.5) K/uL Lymph # (Auto) (1.2-3.4) K/uL [place] # (Auto) (0.11-0.59) K/uL Eos # (Auto) (0-0.5) K/uL Baso # (Auto) (0-0.2) K/uL Sodium (136-145) mmol/L Potassium (3.5-5.1) mmol/L Chloride (98-107) mmol/L Carbon Dioxide (21-32) mmol/L Anion Gap (3-11) BUN (7-18) mg/dl Creatinine (0.6-1.2) mg/dl Est Cr Clr Drug Dosing ml/min Est GFR ( Amer) Est GFR (Non-Af Amer) BUN/Creatinine Ratio (10-20) Glucose (70-99) mg/dl Calcium (8.5-10.1) mg/dl Total Bilirubin (0.2-1) mg/dl Direct Bilirubin (0-0.2) mg/dl AST (15-37) U/L ALT (12-78) U/L Alkaline Phosphatase (45-117) U/L Total Protein (6.4-8.2) gm/dl Albumin (3.4-5.0) gm/dl Globulin (2.5-4.0) gm/dl Albumin/Globulin Ratio (0.9-2) Lipase (73-393) U/L Folate (>5.38) ng/ml Urine Color Yellow Urine Appearance Clear (Clear) Urine pH 6.5 (4.5-7.5) Ur Specific [place] 1.016 (1.000-1.030) Urine Protein Negative (Negative) Urine Glucose (UA) Negative (Negative) Urine Ketones 1+ H (Negative) Urine Blood Negative (Negative) Urine Nitrite Negative (Negative) Urine Bilirubin Negative (Negative) Urine Urobilinogen Negative (Negative) Ur Leukocyte Esterase Negative (Negative) POC Ur Test NEG (NEG) Ethyl Alcohol mg/dL 111.0 H (0-3) mg/dl 01/20/19 01/20/19 Range/Units 14:32 14:32 WBC 12.95 H (4.8-10.8) K/uL RBC 4.69 (4.2-5.4) M/uL Hgb 15.0 (12.0-16.0) g/dL Hct 42.3 (37-47) % MCV 90.2 (80-100) fL MCH 32.0 (25-34) pg MCHC 35.5 (32-36) g/dL RDW Std Deviation 41.9 (36.4-46.3) fL RDW Coeff of Lala 12.7 (11.5-14.5) % Plt Count 356 (130-400) K/uL MPV 9.1 (7.4-10.4) fL Immature Gran % (Auto) 0.2 % Neut % (Auto) 86.6 % Lymph % (Auto) 7.6 % [place] % (Auto) 5.4 % Eos % (Auto) 0.0 % Baso % (Auto) 0.2 % Immature Gran # (Auto) 0.02 (0.00-0.02) K/uL Neut # (Auto) 11.21 H (1.4-6.5) K/uL Lymph # (Auto) 0.99 L (1.2-3.4) K/uL [place] # (Auto) 0.70 H (0.11-0.59) K/uL Eos # (Auto) 0.00 (0-0.5) K/uL Baso # (Auto) 0.03 (0-0.2) K/uL Sodium 140 (136-145) mmol/L Potassium 3.4 L (3.5-5.1) mmol/L Chloride 99 (98-107) mmol/L Carbon Dioxide 28 (21-32) mmol/L Anion Gap 13.0 H (3-11) BUN 10 (7-18) mg/dl Creatinine 0.64 (0.6-1.2) mg/dl Est Cr Clr Drug Dosing 111.4 ml/min Est GFR ( Amer) 127.6 Est GFR (Non-Af Amer) 110.1 BUN/Creatinine Ratio 15.1 (10-20) Glucose 111 H (70-99) mg/dl Calcium 9.0 (8.5-10.1) mg/dl Total Bilirubin 0.5 (0.2-1) mg/dl Direct Bilirubin 0.1 (0-0.2) mg/dl AST 32 (15-37) U/L ALT 33 (12-78) U/L Alkaline Phosphatase 97 (45-117) U/L Total Protein 8.0 (6.4-8.2) gm/dl Albumin 4.0 (3.4-5.0) gm/dl Globulin (2.5-4.0) gm/dl Albumin/Globulin Ratio (0.9-2) Lipase 5234 H (73-393) U/L Folate (>5.38) ng/ml Urine Color Urine Appearance (Clear) Urine pH (4.5-7.5) Ur Specific [place] (1.000-1.030) Urine Protein (Negative) Urine Glucose (UA) (Negative) Urine Ketones (Negative) Urine Blood (Negative) Urine Nitrite (Negative) Urine Bilirubin (Negative) Urine Urobilinogen (Negative) Ur Leukocyte Esterase (Negative) POC Ur Test (NEG) Ethyl Alcohol mg/dL (0-3) mg/dl
[2019-01-21] MEDS ORDERED: POTASSIUM CHLORIDE 20 MEQ TABCR PO STA (11:37)
--- NOTE | 2019-01-21 16:26 | Hospitalist Progress Note ---
Date of Service January 21, 2019 Assessment & Plan (1) Acute pancreatitis: This is a 44yo F with a PMH of anxiety, alcohol use disorder and tobacco use who presents with abdominal pain that began this morning around 10am was found to have acute pancreatitis. CT abd/pelvis with findings are consistent with acute pancreatitis. There is a 1.4 cm minimally complex fluid collection identified adjacent to the pancreatic tail that is nonspecific and may represent a small pseudocyst. Gall bladder is non-distended. A 2-3 month follow-up CT is recommended following symptom resolution for reassessment. Has been on NPO and receiving IV fluid and electrolyte Pain control Clinically better this morning with decreasing abdominal pain and nausea or vomiting Appreciate GI input and recommendation Will start clears orally (2) Alcohol use disorder: History of heavy alcohol use, serum etoh level of 111, last drink late last night -Alcohol withdrawal protocol with gabapentin, IV ativan -Receiving Banana bag. Thiamine, folic acid, MV ordered for AM -Clinically no signs and/or symptoms of withdrawal -No tremor in outstretched hands but still has tachycardia with a heart rate of 109 (3) Anxiety: Holding home Xanax -Ativan 0.5mg Q4H PRN for anxiety (4) Tobacco use disorder: Recommended cessation DVT Ppx: Fernando mcdonald Code status: FULL PCP: No PCP. Will need to establish care with PCP. Dispo: Admitted to telemetry. Plan to return home once medically stable. Subjective 01/21 Patient was seen and examined in the telemetry unit She is a 44yo F with a PMH of anxiety, alcohol use disorder and tobacco use who presents with abdominal pain that began in the morning of admission around 10am was found to have acute pancreatitis. She was sleeping during my interaction with her On awakening she ask for pain medicine Her pain is little better and denies any nausea and vomiting or diarrhea No chest pain and/or palpitation and no tremor of the outstretched hand Review of Systems 2 Review of Systems: All systems reviewed and are unremarkable except as noted below Constitutional: + malaise Gastrointestinal: + abdominal pain, + bloating and + nausea Neurologic: + generalized weakness Physical Exam Physical Exam: No apparent distress at rest Constitutional: WD/WN, vitals as above Eyes: PERRL, conjunctivae normal, anicteric sclerae ENMT: external ear and nose normal, oropharynx normal Neck: trachea midline, no thyromegaly Respiratory: normal respiratory effort, lungs clear to auscultation Cardiovascular: Rate/Rhythm: regular rhythm and + tachycardic Gastrointestinal (Abdomen): Inspection/Auscultation: abdomen normal to inspection and normal bowel sounds Percussion/Palpation: + abdomen tender and abdomen soft; no guarding and abdomen not rigid Musculoskeletal: No acute arthritis involving any joint Skin: no rashes, warm and dry Neurologic: PERRL, EOMI, accommodation nl, no face palsy, no dysarthria No tremor involving the outstretched hands Lymphatic: no cervical or axillary lymphadenopathy Results & Data Vital Signs (Past 12 Hours) Vital Signs Temp Pulse Pulse Resp BP Pulse Ox 01/21/19 13:34 109 H 148/101 H 94 01/21/19 12:07 37.6 C H 18 151/104 H 97 01/21/19 09:30 90 01/21/19 07:41 37.1 C 91 H 20 130/91 98 Laboratory Results Short CBC 01/21/19 Range/Units 05:51 WBC 9.57 (4.8-10.8) K/uL Hgb 12.4 (12.0-16.0) g/dL Hct 35.5 L (37-47) % Plt Count 266 (130-400) K/uL BMP 01/21/19 05:51 Sodium 133 L Potassium 3.3 L Chloride 97 L Carbon Dioxide 30 BUN 4 L D Creatinine 0.53 L Glucose 84 Calcium 8.1 L Liver Function 01/21/19 Range/Units 05:51 Total Bilirubin 1.0 D (0.2-1) mg/dl AST 23 (15-37) U/L ALT 25 (12-78) U/L Alkaline Phosphatase 86 (45-117) U/L Albumin 3.3 L (3.4-5.0) gm/dl Urine 01/20/19 Range/Units 16:50 Urine Color Yellow Urine Appearance Clear (Clear) Urine pH 6.5 (4.5-7.5) Ur Specific [place] 1.016 (1.000-1.030) Urine Protein Negative (Negative) Urine Glucose (UA) Negative (Negative) Medications Administered Current Inpatient Medications Clonidine HCl (Catapres) 0.1 mg PO Q6H PRN PRN Reason: SBP >160 Stop: 02/19/19 20:19 Last Admin: 01/21/19 04:21 Dose: 0.1 mg Documented by: Folic Acid (Folvite) 1 mg PO QAM [facility] Stop: 02/20/19 08:59 Last Admin: 01/21/19 08:10 Dose: 1 mg Documented by: Gabapentin (Neurontin) 600 mg PO Q12H [facility] Stop: 01/23/19 06:01 Gabapentin (Neurontin) 600 mg PO Q24H [facility] Stop: 01/24/19 06:01 Gabapentin (Neurontin) 600 mg PO Q8H [facility] Stop: 01/22/19 06:01 Last Admin: 01/21/19 15:14 Dose: 600 mg Documented by: Hydromorphone HCl (Dilaudid) 0.5 mg IV Q3H PRN PRN Reason: Severe Pain Rating (7,8) Stop: 02/03/19 17:44 Last Admin: 01/21/19 15:17 Dose: 0.5 mg Documented by: Lorazepam (Ativan) 1 mg in 2 mls @ 2 mls/min IV ONE PRN; Protocol PRN Reason: EtoH Withdrawal AWSS 6-10 Stop: 02/19/19 16:55 Last Admin: 01/20/19 20:35 Dose: 2 mls/min Documented by: Promethazine HCl 25 mg/ Sodium (Chloride) 51 mls @ 204 mls/hr IV Q6H PRN PRN Reason: Nausea And Vomiting Stop: 02/19/19 17:44 Lactated Ringer's (Lr) 1,000 mls @ 200 mls/hr IV .Q5H [facility] Stop: 02/19/19 17:44 Last Admin: 01/21/19 15:14 Dose: 200 mls/hr Documented by: Lorazepam (Ativan) 0.5 mg in 1 mls @ 1 mls/min IV Q4H PRN PRN Reason: Anxiety/Agitation Stop: 02/19/19 20:59 Last Admin: 01/21/19 08:22 Dose: 1 mls/min Documented by: Ketorolac Tromethamine (Toradol) 15 mg IV Q6H PRN PRN Reason: Pain Stop: 01/25/19 20:59 Last Admin: 01/21/19 12:39 Dose: 15 mg Documented by: [facility]ivitamins ([facility]ivitamin Tab) [facility] [place]: 02/20/19 08:59 Last Admin: 01/21/19 08:10 Dose: 1 tab Documented by: Ondansetron HCl (Zofran) 4 mg IV Q6H PRN PRN Reason: Nausea Stop: 02/19/19 17:44 Thiamine HCl (Vitamin B-1) 100 mg PO QAM [facility] Stop: 02/19/19 17:59 Last Admin: 01/21/19 08:10 Dose: 100 mg Documented by:
[2019-01-21] MEDS ORDERED: ALUMINUM/MAGNESIUM SUSP 30 ML UDC PO PRN (17:48)
[2019-01-21] MEDS: ONDANSETRON INJ 2 MG/ML 2 ML VIAL IV PRN (21:09)
[2019-01-22] MEDS: LORazepam 0.5 MG/1 ML VIAL IV PRN ×3 (00:14→12:58)
[2019-01-22] MEDS: HYDROmorphone INJ 0.5 MG/0.5 ML SYR IV PRN ×3 (02:29→08:44)
[2019-01-22] MEDS: KETOROLAC TROMETHAMINE 15 MG/ML VIAL IV PRN ×4 (03:48→21:06)
[2019-01-22] MEDS: LACTATED RINGER'S 1,000 ML IV SCH ×4 (04:23→21:04)
[2019-01-22] MEDS: GABAPENTIN 600 MG TAB PO SCH ×2 (05:23→18:58)
[2019-01-22 06:57] LABS: Basophils # (auto) 0.03 K/uL (0-0.2); Basophils % (auto) 0.4 %; Eosinophils % (auto) 1.5 %; Hematocrit (blood only) 35.3 % (37-47); Hemoglobin 12.1 g/dL (12.0-16.0); Immature Granulocytes # (auto) 0.01 K/uL (0.00-0.02); Immature Granulocytes % (auto) 0.1 %; Lymphocytes # (auto) 1.44 K/uL (1.2-3.4); Lymphocytes % (auto) 21.3 %; Mean Corpuscular Hgb Conc 34.3 g/dL (32-36); Mean Corpuscular Volume 91.9 fL (80-100); Mean Platelet Volume 9.6 fL (7.4-10.4); Monocytes # (auto) 0.63 K/uL (0.11-0.59); Monocytes % (auto) 9.3 %; Neutrophils # (auto) 4.56 K/uL (1.4-6.5); Neutrophils % (auto) 67.4 %; Platelet Count 250 K/uL (130-400); RDW Coefficient of Variation 12.3 % (11.5-14.5); RDW Standard Deviation 41.7 fL (36.4-46.3); Red Blood Count 3.84 M/uL (4.2-5.4); White Blood Count 6.77 K/uL (4.8-10.8)
[2019-01-22 07:36] LABS: Albumin Level 3.1 gm/dl (3.4-5.0); BUN Creatinine Ratio 13.1 (10-20); Calcium 8.2 mg/dl (8.5-10.1); Creatinine Clr Calc Pharmacy 142.5 ml/min; Est GFR (African American) 138.4; Est GFR (Non-African American) 119.4; Potassium 3.1 mmol/L (3.5-5.1)
[2019-01-22 07:38] LABS: Albumin Globulin Ratio 0.8 (0.9-2); Bilirubin,Total 0.8 mg/dl (0.2-1); Globulin 3.7 gm/dl (2.5-4.0); Total Protein 6.8 gm/dl (6.4-8.2)
[2019-01-22] MEDS: MULTIVITAMIN TAB PO SCH (08:46)
[2019-01-22] MEDS: FOLIC ACID 1 MG TAB PO SCH (08:46)
[2019-01-22] MEDS: THIAMINE HCL 100 MG TAB PO SCH (08:46)
[2019-01-22] MEDS ORDERED: POTASSIUM CHLORIDE 20 MEQ TABCR PO STA (09:59)
--- NOTE | 2019-01-22 10:08 | Gastroenterology Progress Note ---
Date of Service January 22, 2019 Assessment & Plan (1) Acute pancreatitis: 44 year old female with history of ETOH/biliary induced pancreatitis x 2 admitted through the ED w/ return of upper abdominal pain, nausea, vomiting w/ CT evidence and question of 1.4 CM fluid collection of the pancreatic tail. Pending course today consider trial of liquids. - Treat the pancreatitis - LR 200/250 mL/hr - NPO for bowel rest - Analgesia PRN - Antiemetics PRN - If pain worsens, consider repeat CT imaging - Will need OP CT abd/pelvis w/ contrast to ensure resolution of fluid collection - This will need to be arranged through her PCP as she plans on following up with her regular doctors in [place] - Strict ETOH cessation and sobriety was discussed - She verbalized understanding - History of gallstones/sludge - She had to cancel her cholecystectomy - No current imaging w/ evidence of stones/sludge - Would recommend a general surgery consultation to discuss cholecystectomy Thank you for allowing us to participate in the care of this patient. Please call with any acute changes, questions or concerns. Please see addendum below with additional recommendation from my supervising physician. Supervising Physician Co-Signing Physician Notes Late entry: Patient was seen and examined on 01/22 with ESTRADA Landaverde whose note reflects our findings and plan. Subjective Pt was seen and evaluated, chart reviewed. Persistent pain. No nausea, vomiting. No black or bloody stools. No fever, chills, CP, SOB. Review of Systems Constitutional: no fever and no body aches Respiratory: no cough and no dyspnea Cardiovascular: no chest pain, no radiating jaw, neck or arm pain and no palpitations Gastrointestinal: + abdominal pain; no early satiety, no nausea, no blood in stools and no melena Physical Exam Constitutional: WD/WN, vitals as above Respiratory: normal respiratory effort, lungs clear to auscultation Cardiovascular: Rate/Rhythm: regular rhythm and + tachycardic Gastrointestinal (Abdomen): Inspection/Auscultation: abdomen normal to inspection and normal bowel sounds Percussion/Palpation: + abdomen tender and abdomen soft; no guarding and abdomen not rigid Skin: no rashes, warm and dry Results & Data Vital Signs (Past 12 Hours) Vital Signs Temp Pulse Pulse Resp BP Pulse Ox 01/22/19 07:52 75 01/22/19 07:30 37.5 C 92 H 22 161/108 H 97 01/22/19 03:59 36.7 C 92 H 18 148/98 H 96 01/22/19 01:22 88 01/22/19 00:06 37 C 88 18 152/98 H 99 Laboratory Results 01/22/19 01/22/19 Range/Units 06:22 06:22 WBC 6.77 (4.8-10.8) K/uL RBC 3.84 L (4.2-5.4) M/uL Hgb 12.1 (12.0-16.0) g/dL Hct 35.3 L (37-47) % MCV 91.9 (80-100) fL MCH 31.5 (25-34) pg MCHC 34.3 (32-36) g/dL RDW Std Deviation 41.7 (36.4-46.3) fL RDW Coeff of Lala 12.3 (11.5-14.5) % Plt Count 250 (130-400) K/uL MPV 9.6 (7.4-10.4) fL Immature Gran % (Auto) 0.1 % Neut % (Auto) 67.4 % Lymph % (Auto) 21.3 % [place] % (Auto) 9.3 % Eos % (Auto) 1.5 % Baso % (Auto) 0.4 % Immature Gran # (Auto) 0.01 (0.00-0.02) K/uL Neut # (Auto) 4.56 (1.4-6.5) K/uL Lymph # (Auto) 1.44 (1.2-3.4) K/uL [place] # (Auto) 0.63 H (0.11-0.59) K/uL Eos # (Auto) 0.10 (0-0.5) K/uL Baso # (Auto) 0.03 (0-0.2) K/uL Sodium 136 (136-145) mmol/L Potassium 3.1 L (3.5-5.1) mmol/L Chloride 98 (98-107) mmol/L Carbon Dioxide 29 (21-32) mmol/L Anion Gap 10.0 (3-11) BUN 7 (7-18) mg/dl Creatinine 0.50 L (0.6-1.2) mg/dl Est Cr Clr Drug Dosing 142.5 ml/min Est GFR ( Amer) 138.4 Est GFR (Non-Af Amer) 119.4 BUN/Creatinine Ratio 13.1 (10-20) Glucose 63 L (70-99) mg/dl Calcium 8.2 L (8.5-10.1) mg/dl Phosphorus 2.0 L (2.5-4.9) mg/dl Magnesium 2.0 (1.8-2.4) mg/dl Total Bilirubin 0.8 (0.2-1) mg/dl AST 22 (15-37) U/L ALT 20 (12-78) U/L Alkaline Phosphatase 79 (45-117) U/L Total Protein 6.8 (6.4-8.2) gm/dl Albumin 3.1 L (3.4-5.0) gm/dl Globulin 3.7 (2.5-4.0) gm/dl Albumin/Globulin Ratio 0.8 L (0.9-2) Lipase 522 H (73-393) U/L
[2019-01-22] MEDS ORDERED: OXYCODONE HCL IR 5 MG TAB (IMMEDIATE RELEASE) PO PRN (10:38)
[2019-01-22] MEDS: cloNIDine HCl 0.1 MG TAB PO SCH ×2 (11:51→21:04)
[2019-01-22] MEDS: cloNIDine HCl 0.1 MG TAB PO PRN (15:31)
--- NOTE | 2019-01-22 16:42 | Hospitalist Progress Note ---
Date of Service January 22, 2019 Assessment & Plan (1) Acute pancreatitis: This is a 44yo F with a PMH of anxiety, alcohol use disorder and tobacco use who presents with abdominal pain that began this morning around 10am was found to have acute pancreatitis. CT abd/pelvis with findings are consistent with acute pancreatitis. There is a 1.4 cm minimally complex fluid collection identified adjacent to the pancreatic tail that is nonspecific and may represent a small pseudocyst. Gall bladder is non-distended. A 2-3 month follow-up CT is recommended following symptom resolution for reassessment. Has been on NPO and receiving IV fluid and electrolyte Pain control with Toradol and PRN Percocet Clinically better this morning with decreasing abdominal pain and nausea or vomiting Appreciate GI input and recommendation Clinically much better with improvement of her pancreatic enzymes Electrolytes replaced Advance diet as tolerated and likely be discharged tomorrow if stable Possible history of gallstones as per the patient Not been documented current scans Will get ultrasound of the gallbladder to evaluate gallstones (2) Alcohol use disorder: History of heavy alcohol use, serum etoh level of 111, last drink late last night -Alcohol withdrawal protocol with gabapentin, IV ativan -Receiving Banana bag. Thiamine, folic acid, MV ordered for AM -Clinically no signs and/or symptoms of withdrawal -No tremor in outstretched hands but still has tachycardia with a heart rate of 109 -No signs and/or symptoms of when (3) Anxiety: Holding home Xanax -Ativan changed to p.o. 0.5mg Q4H PRN for anxiety (4) Tobacco use disorder: Recommended cessation DVT Ppx: Fernando mcdonald Code status: FULL PCP: No PCP. Will need to establish care with PCP. Dispo: Admitted to telemetry. Plan to return home once medically stable. Like to be discharged tomorrow Subjective 01/21 Patient was seen and examined in the telemetry unit She is a 44yo F with a PMH of anxiety, alcohol use disorder and tobacco use who presents with abdominal pain that began in the morning of admission around 10am was found to have acute pancreatitis. She was sleeping during my interaction with her On awakening she ask for pain medicine Her pain is little better and denies any nausea and vomiting or diarrhea No chest pain and/or palpitation and no tremor of the outstretched hand 01/22 The patient was seen and examined in telemetry unit She has been feeling a lot better Her pain is improved and she denies to have any nausea and/or vomiting He does not have any tremor at rest Review of Systems Review of Systems: All systems reviewed and are unremarkable except as noted below Constitutional: + malaise Gastrointestinal: + abdominal pain, + bloating and + nausea Neurologic: + generalized weakness Physical Exam Physical Exam: No apparent distress at rest Constitutional: well developed and well nourished; no acute distress Eyes: PERRL, conjunctivae normal, anicteric sclerae ENMT: external ear and nose normal, oropharynx normal Neck: trachea midline, no thyromegaly Respiratory: normal respiratory effort Auscultation: lungs clear to auscultation bilaterally Cardiovascular: Rate/Rhythm: regular rhythm and + tachycardic Gastrointestinal (Abdomen): Inspection/Auscultation: abdomen normal to inspection and normal bowel sounds Percussion/Palpation: + abdomen tender (Minimal tenderness in the epigastrium) and abdomen soft; no guarding and abdomen not rigid Skin: no rashes, warm and dry Neurologic: PERRL, EOMI, accommodation nl, no face palsy, no dysarthria No tremors of the outstretched hands Psychiatric: A+Ox3, euthymic affect Lymphatic: no cervical or axillary lymphadenopathy Results & Data Vital Signs (Past 12 Hours) Vital Signs Temp Pulse Pulse Resp BP Pulse Ox 01/22/19 15:25 36.8 C 78 18 172/103 H 95 01/22/19 11:31 37.1 C 82 16 172/103 H 97 01/22/19 07:52 75 01/22/19 07:30 37.5 C 92 H 22 161/108 H 97 Laboratory Results Short CBC 01/22/19 Range/Units 06:22 WBC 6.77 (4.8-10.8) K/uL Hgb 12.1 (12.0-16.0) g/dL Hct 35.3 L (37-47) % Plt Count 250 (130-400) K/uL BMP 01/22/19 06:22 Sodium 136 Potassium 3.1 L Chloride 98 Carbon Dioxide 29 BUN 7 Creatinine 0.50 L Glucose 63 L Calcium 8.2 L Liver Function 01/22/19 Range/Units 06:22 Total Bilirubin 0.8 (0.2-1) mg/dl AST 22 (15-37) U/L ALT 20 (12-78) U/L Alkaline Phosphatase 79 (45-117) U/L Albumin 3.1 L (3.4-5.0) gm/dl Medications Administered Current Inpatient Medications Al Hydrox/Mg Hydrox/Simethicone (Maalox) 15 ml PO Q6H PRN PRN Reason: Indigestion Stop: 02/20/19 17:47 Last Admin: 01/21/19 18:33 Dose: 15 ml Documented by: Clonidine HCl (Catapres) 0.1 mg PO Q6H PRN PRN Reason: SBP >160 Stop: 02/19/19 20:19 Last Admin: 01/22/19 15:31 Dose: 0.1 mg Documented by: Clonidine HCl (Catapres) 0.1 mg PO BID [facility] Stop: 02/21/19 09:59 Last Admin: 01/22/19 11:51 Dose: 0.1 mg Documented by: Folic Acid (Folvite) 1 mg PO QAM [facility] Stop: 02/20/19 08:59 Last Admin: 01/22/19 08:46 Dose: 1 mg Documented by: Gabapentin (Neurontin) 600 mg PO Q12H [facility] Stop: 01/23/19 06:01 Gabapentin (Neurontin) 600 mg PO Q24H [facility] Stop: 01/24/19 06:01 Promethazine HCl 25 mg/ Sodium (Chloride) 51 mls @ 204 mls/hr IV Q6H PRN PRN Reason: Nausea And Vomiting Stop: 02/19/19 17:44 Lactated Ringer's (Lr) 1,000 mls @ 100 mls/hr IV .Q10H [facility] Stop: 02/19/19 17:44 Last Infusion: 01/22/19 15:57 Dose: 100 mls/hr Documented by: Ketorolac Tromethamine (Toradol) 15 mg IV Q6H PRN PRN Reason: Pain Stop: 01/25/19 20:59 Last Admin: 01/22/19 15:19 Dose: 15 mg Documented by: Lorazepam (Ativan) 0.5 mg PO Q6H PRN PRN Reason: Anxiety Stop: 02/21/19 15:51 [facility]ivit[facility] ([facility]amin Tab) [facility]: 02/20/19 08:59 Last Admin: 01/22/19 08:46 Dose: 1 tab Documented by: Ondansetron HCl (Zofran) 4 mg IV Q6H PRN PRN Reason: Nausea Stop: 02/19/19 17:44 Last Admin: 01/21/19 21:09 Dose: 4 mg Documented by: Oxycodone/Acetaminophen (Percocet 5mg/325mg) 1 tab PO Q4H PRN PRN Reason: Pain Stop: 02/05/19 13:04 Thiamine HCl (Vitamin B-1) 100 mg PO [facility] Stop: 02/19/19 17:59 Last Admin: 01/22/19 08:46 Dose: 100 mg Documented by:
[2019-01-22] MEDS: OXYCODONE/ACETAMINOPHEN 5mg/325mg TAB PO PRN ×2 (17:41→22:09)
--- NOTE | 2019-01-22 18:18 | Ultrasound Report ---
ABDOMINAL ULTRASOUND, RIGHT UPPER QUADRANT HISTORY: Mid abdominal pain. r/o gallstone. COMPARISON: Abdomen and pelvis CT 01/20/2019. FINDINGS: Pancreas: Slightly heterogeneous echotexture likely corresponding to the patient's known acute pancre atitis. The main pancreatic duct is normal in caliber. Liver: Unremarkable. Gallbladder: No gallbladder wall thickening. No gallstones. Mildly distended. CBD: 6 mm. Right kidney: No hydronephrosis. IMPRESSION: 1. Mildly distended gallbladder, unchanged. No gallbladder wall thickening. No gallstones. 2. Normal caliber common bile duct. 3. Slightly heterogeneous echotexture likely corresponding to the patient's known acute pancreatitis. Electronically signed by: Spike Kumar M.D. 01/22/2019 6:17 PM
[2019-01-22] MEDS ORDERED: OXYCODONE/ACETAMINOPHEN 5mg/325mg TAB PO STA (18:25)
[2019-01-22] MEDS: LORazepam 0.5 MG TAB PO PRN (21:06)
[2019-01-23] MEDS ORDERED: HYDROmorphone INJ 0.5 MG/0.5 ML SYR IV STA (01:39)
[2019-01-23] MEDS: KETOROLAC TROMETHAMINE 15 MG/ML VIAL IV PRN ×2 (04:03→10:12)
[2019-01-23] MEDS: cloNIDine HCl 0.1 MG TAB PO PRN (04:07)
[2019-01-23] MEDS: ONDANSETRON INJ 2 MG/ML 2 ML VIAL IV PRN (04:08)
[2019-01-23] MEDS: OXYCODONE/ACETAMINOPHEN 5mg/325mg TAB PO PRN ×2 (05:19→09:48)
[2019-01-23] MEDS: GABAPENTIN 600 MG TAB PO SCH (05:19)
[2019-01-23 07:26] LABS: BUN Creatinine Ratio 9.2 (10-20); Calcium 8.9 mg/dl (8.5-10.1); Creatinine Clr Calc Pharmacy 121.9 ml/min; Est GFR (African American) 131.8; Est GFR (Non-African American) 113.7; Magnesium 2.1 mg/dl (1.8-2.4); Potassium 3.5 mmol/L (3.5-5.1)
[2019-01-23 07:33] LABS: Albumin Globulin Ratio 0.8 (0.9-2); Bilirubin,Total 0.5 mg/dl (0.2-1); Globulin 3.8 gm/dl (2.5-4.0); Phosphorus 3.1 mg/dl (2.5-4.9); Total Protein 6.8 gm/dl (6.4-8.2)
[2019-01-23] MEDS: LORazepam 0.5 MG TAB PO PRN (07:38)
[2019-01-23] MEDS: THIAMINE HCL 100 MG TAB PO SCH (07:38)
[2019-01-23] MEDS: cloNIDine HCl 0.1 MG TAB PO SCH (07:38)
[2019-01-23] MEDS: FOLIC ACID 1 MG TAB PO SCH (07:38)
[2019-01-23] MEDS: MULTIVITAMIN TAB PO SCH (07:51)
--- NOTE | 2019-01-23 09:51 | Hospitalist Progress Note ---
Date of Service January 23, 2019 Assessment & Plan (1) Acute pancreatitis: This is a 44yo F with a PMH of anxiety, alcohol use disorder and tobacco use who presents with abdominal pain that began this morning around 10am was found to have acute pancreatitis. CT abd/pelvis with findings are consistent with acute pancreatitis. There is a 1.4 cm minimally complex fluid collection identified adjacent to the pancreatic tail that is nonspecific and may represent a small pseudocyst. Gall bladder is non-distended. A 2-3 month follow-up CT is recommended following symptom resolution for reassessment. Has been on NPO and receiving IV fluid and electrolyte Pain control with Toradol and PRN Percocet Clinically better this morning with decreasing abdominal pain and nausea or vomiting Appreciate GI input and recommendation Clinically much better with improvement of her pancreatic enzymes Electrolytes replaced Advance diet as tolerated and likely be discharged tomorrow if stable Clinically not better and tolerating regular diet with minimal epigastric pain Denies any nausea no vomiting and no other symptoms Blood pressure remains high Has been getting clonidine 0.1 mg twice daily We will continue that on discharge Will have an appointment with her primary care doctor within 7 days Possible history of gallstones as per the patient Not been documented current scans Will get ultrasound of the gallbladder to evaluate gallstones Ultrasound of the gallbladder did not show any cholelithiasis (2) Alcohol use disorder: History of heavy alcohol use, serum etoh level of 111, last drink late last night -Alcohol withdrawal protocol with gabapentin, IV ativan -Receiving Banana bag. Thiamine, folic acid, MV ordered for AM -Clinically no signs and/or symptoms of withdrawal -No tremor in outstretched hands but still has tachycardia with a heart rate of 109 -No signs and/or symptoms of when -Strongly advised to quit drinking (3) Anxiety: Holding home Xanax -Ativan changed to p.o. 0.5mg Q4H PRN for anxiety (4) Tobacco use disorder: Recommended cessation Nicotine patch ordered DVT Ppx: Fernando mcdonald Code status: FULL PCP: No PCP. Will need to establish care with PCP. Dispo: Admitted to telemetry. Plan to return home once medically stable. Will discharge today Subjective 01/21 Patient was seen and examined in the telemetry unit She is a 44yo F with a PMH of anxiety, alcohol use disorder and tobacco use who presents with abdominal pain that began in the morning of admission around 10am was found to have acute pancreatitis. She was sleeping during my interaction with her On awakening she ask for pain medicine Her pain is little better and denies any nausea and vomiting or diarrhea No chest pain and/or palpitation and no tremor of the outstretched hand 01/22 The patient was seen and examined in telemetry unit She has been feeling a lot better Her pain is improved and she denies to have any nausea and/or vomiting He does not have any tremor at rest 01/23 The patient was seen and examined in telemetry She complains some pain in the abdomen but no nausea and vomiting with Denies any other symptoms Does not have any tremor from alcohol withdrawal, no tachycardia Blood pressure remains on the upper side Review of Systems Review of Systems: All systems reviewed and are unremarkable except as noted below Constitutional: + malaise Gastrointestinal: + abdominal pain (Minimal epigastric pain); no bloating, no nausea and no vomiting Physical Exam Physical Exam: No apparent distress at rest Constitutional: WD/WN, vitals as above well developed and well nourished; no acute distress Eyes: PERRL, conjunctivae normal, anicteric sclerae ENMT: external ear and nose normal, oropharynx normal Neck: trachea midline, no thyromegaly Respiratory: normal respiratory effort, lungs clear to auscultation normal respiratory effort Auscultation: lungs clear to auscultation bilaterally Cardiovascular: Rate/Rhythm: regular rhythm and + tachycardic Gastrointestinal (Abdomen): Inspection/Auscultation: abdomen normal to inspection and normal bowel sounds Percussion/Palpation: + abdomen tender (Minimal tenderness in the epigastrium) and abdomen soft; no guarding and abdomen not rigid Musculoskeletal: No acute arthritis Skin: no rashes, warm and dry Neurologic: PERRL, EOMI, accommodation nl, no face palsy, no dysarthria Psychiatric: A+Ox3, euthymic affect Lymphatic: no cervical or axillary lymphadenopathy Results & Data Vital Signs (Past 12 Hours) Vital Signs Temp Pulse Pulse Resp BP BP Pulse Ox 01/23/19 07:25 68 01/23/19 07:19 36.8 C 66 16 140/90 98 01/23/19 04:32 36.8 C 66 17 162/98 H 97 01/23/19 00:44 76 01/22/19 23:23 37.2 C 75 17 146/88 H 97 Laboratory Results [facility] 01/23/19 06:10 Sodium 139 Potassium 3.5 Chloride 102 Carbon Dioxide 32 BUN 5 L Creatinine 0.58 L Glucose 119 H Calcium 8.9 Liver Function 01/23/19 Range/Units 06:10 Total Bilirubin 0.5 (0.2-1) mg/dl AST 23 (15-37) U/L ALT 19 (12-78) U/L Alkaline Phosphatase 67 (45-117) U/L Albumin 3.0 L (3.4-5.0) gm/dl Medications Administered Current Inpatient Medications Al Hydrox/Mg Hydrox/Simethicone (Maalox) 15 ml PO Q6H PRN PRN Reason: Indigestion Stop: 02/20/19 17:47 Last Admin: 01/21/19 18:33 Dose: 15 ml Documented by: Clonidine HCl (Catapres) 0.1 mg PO Q6H PRN PRN Reason: SBP >160 Stop: 02/19/19 20:19 Last Admin: 01/23/19 04:07 Dose: 0.1 mg Documented by: Clonidine HCl (Catapres) 0.1 mg PO BID [facility] Stop: 02/21/19 09:59 Last Admin: 01/23/19 07:38 Dose: 0.1 mg Documented by: Folic Acid (Folvite) 1 mg PO [facility] Stop: 02/20/19 08:59 Last Admin: 01/23/19 07:38 Dose: 1 mg Documented by: Gabapentin (Neurontin) 600 mg PO Q24H [facility] Stop: 01/24/19 06:01 Promethazine HCl 25 mg/ Sodium (Chloride) 51 mls @ 204 mls/hr IV Q6H PRN PRN Reason: Nausea And Vomiting Stop: 02/19/19 17:44 Ketorolac Tromethamine (Toradol) 15 mg IV Q6H PRN PRN Reason: Pain Stop: 01/25/19 20:59 Last Admin: 01/23/19 04:03 Dose: 15 mg Documented by: Lorazepam (Ativan) 0.5 mg PO Q6H PRN PRN Reason: Anxiety Stop: 02/21/19 15:51 Last Admin: 01/23/19 07:38 Dose: 0.5 mg Documented by: Multivitamins (Multivitamin Tab) 1 tab PO QAM [facility] Stop: 02/20/19 08:59 Last Admin: 01/23/19 07:51 Dose: 1 tab Documented by: Ondansetron HCl (Zofran) 4 mg IV Q6H PRN PRN Reason: Nausea Stop: 02/19/19 17:44 Last Admin: 01/23/19 04:08 Dose: 4 mg Documented by: Oxycodone/Acetaminophen (Percocet 5mg/325mg) 1 tab PO Q4H PRN PRN Reason: Pain Stop: 02/05/19 13:04 Last Admin: 01/23/19 05:19 Dose: 1 tab Documented by: Thiamine HCl (Vitamin B-1) 100 mg PO QAM [facility] Stop: 02/19/19 17:59 Last Admin: 01/23/19 07:38 Dose: 100 mg Documented by:
--- NOTE | 2019-01-23 12:03 | Discharge Summary ---
Date of Service January 23, 2019 Admission HPI Per Admitting Provider This is a 44yo F with a PMH of anxiety, alcohol use disorder and tobacco use who presents with abdominal pain that began this morning around 10am. Pain is described as sharp, stabbing and constant, located in upper epigastrium with radiation down abdomen as well as towards back. Tried pepto bismol and zofran at home without alleviation. Has had multiple episodes of bilious emesis and is still nauseated. Also endorses subjective fever and chills. Has history of alcohol use, endorsing 3 vodka mixed drinks daily. Went out last night and had a few beers, with last drink around 0100. Did experience abdominal pain similar to this back in November and was evaluated at [facility] in [place], [place]. Reports being told then that it was caused by gall bladder sludge. Followed up with general surgeon but felt that surgery was too expensive for her to pay. Denies lightheadedness, headache, visual changes, cough, chest pain, palpitations, shortness of breath, dysuria, constipation or diarrhea. Only daily home medication is Xanax. Found to be hypertensive and tachycardic initially. Leukocytosis of 12.95, lipase of 5234. CT abd/pelvis with findings are consistent with acute pancreatitis. There is a 1.4 cm minimally complex fluid collection identified adjacent to the pancreatic tail that is nonspecific and may represent a small pseudocyst. Gall bladder is non-distended. Admission Exam Per Admitting Provider Physical Exam: General Appearance: WD/WN, thin, in acute distress from abdominal pain, anxious Head: normocephalic, atraumatic Eyes: normal inspection, PERRL, EOMI ENT: hearing grossly normal, pharynx normal (dry mucous membranes) Neck: supple, no JVD, no adenopathy Respiratory/Chest: lungs clear to auscultation. No wheezes, rales or rhonci. No respiratory distress or accessory muscle use Cardiovascular: Tachycardic, regular rhythm, no murmur, normal peripheral pulses Abdomen/GI: normal bowel sounds, epigastrium tender to palpation, no distention, + guarding Extremities/Musculoskelatal: normal inspection, no calf tenderness, normal capillary refill, no pedal edema Neurologic/Psych: alert, oriented x 3, anxious Skin: normal color, warm/dry Principal Diagnosis Acute pancreatitis, alcohol abuse,HTN Discharge Exam Constitutional WD/WN, vitals as above well developed and well nourished; no acute distress Eyes PERRL, conjunctivae normal, anicteric sclerae ENMT external ear and nose normal, oropharynx normal Neck trachea midline, no thyromegaly Respiratory normal respiratory effort, lungs clear to auscultation normal respiratory effort Auscultation: lungs clear to auscultation bilaterally Cardiovascular Rate/Rhythm: regular rhythm and + tachycardic Gastrointestinal (Abdomen) Inspection/Auscultation: abdomen normal to inspection and normal bowel sounds Percussion/Palpation: + abdomen tender (Minimal tenderness in the epigastrium) and abdomen soft; no guarding and abdomen not rigid Skin no rashes, warm and dry Neurologic PERRL, EOMI, accommodation nl, no face palsy, no dysarthria Psychiatric A+Ox3, euthymic affect Lymphatic no cervical or axillary lymphadenopathy Discharge Data Allergies Allergy/AdvReac Type Severity Reaction Status Date / Time Sulfa (Sulfonamide Allergy Unknown Unverified 01/20/19 15:03 Antibiotics) Consultations 01/20/19 15:43 ED Decision to Admit Stat 01/21/19 08:00 Consult Gastroenterology Routine Ordered Studies 01/20/19 17:08 CT abdomen w IV con Urgent 01/22/19 13:39 US gallbladder Routine Hospital Course (1) Acute pancreatitis: This is a 44yo F with a PMH of anxiety, alcohol use disorder and tobacco use who presents with abdominal pain that began this morning around 10am was found to have acute pancreatitis. CT abd/pelvis with findings are consistent with acute pancreatitis. There is a 1.4 cm minimally complex fluid collection identified adjacent to the pancreatic tail that is nonspecific and may represent a small pseudocyst. Gall bladder is non-distended. A 2-3 month follow-up CT is recommended following symptom resolution for reassessment. Has been on NPO and receiving IV fluid and electrolyte Pain control with Toradol and PRN Percocet Clinically better this morning with decreasing abdominal pain and nausea or vomiting Appreciate GI input and recommendation Clinically much better with improvement of her pancreatic enzymes Electrolytes replaced Advance diet as tolerated and likely be discharged tomorrow if stable Clinically not better and tolerating regular diet with minimal epigastric pain Denies any nausea no vomiting and no other symptoms Blood pressure remains high Has been getting clonidine 0.1 mg twice daily We will continue that on discharge Will have an appointment with her primary care doctor within 7 days Possible history of gallstones as per the patient Not been documented current scans Will get ultrasound of the gallbladder to evaluate gallstones Ultrasound of the gallbladder did not show any cholelithiasis (2) Alcohol use disorder: History of heavy alcohol use, serum etoh level of 111, last drink late last night -Alcohol withdrawal protocol with gabapentin, IV ativan -Receiving Banana bag. Thiamine, folic acid, MV ordered for AM -Clinically no signs and/or symptoms of withdrawal -No tremor in outstretched hands but still has tachycardia with a heart rate of 109 -No signs and/or symptoms of when -Strongly advised to quit drinking (3) Anxiety: Holding home Xanax -Ativan changed to p.o. 0.5mg Q4H PRN for anxiety (4) Tobacco use disorder: Recommended cessation Nicotine patch ordered DVT Ppx: Fernando mcdonald Code status: FULL PCP: No PCP. Will need to establish care with PCP. Dispo: Admitted to telemetry. Plan to return home once medically stable. Will discharge today Total Time Total Time Spent Total Time Spent (In Minutes): 35 minutes Total Time Includes: Examination of the Patient, Discharge Planning and Medication Reconciliation Discharge Plan Discharge Items Patient Disposition: Home - Self-Care Reason For Visit: ACUTE PANCREATITIS, ETOH ABUSE Discharge Diagnosis: Acute pancreatitis, alcohol abuse,HTN Condition: Fair Discharge Goals: Decrease discomfort, Improve function and Increase independence Activity: Resume your previous activity Non-emergency contact: Primary Care Provider Call non-emergency contact if: you have any medication questions and your symptoms worsen Follow-up/Referrals: PCP,NO [Primary Care Provider] - (Please make an appointment with your primary care provider within 1 week) Diet: Low Fat Addtl Provider Instructions: Please quit drinking of alcohol and quit smoking Prescriptions: New multivitamin [Daily-Pablo] Tablet 1 tab PO QAM 30 Days Qty: 30 RF: 0 clonidine HCl 0.1 mg Tablet 0.1 mg PO BID 30 Days Qty: 60 RF: 0 thiamine HCl (vitamin B1) [Vitamin B-1] 100 mg Tablet 100 mg PO QAM 30 Days Qty: 30 RF: 0 folic acid 1 mg Tablet 1 mg PO QAM 30 Days Qty: 30 RF: 0 oxycodone 5 mg capsule 5 mg PO Q6H PRN (Reason: pain) Qty: 20 RF: 0 Continued alprazolam 0.5 mg tablet 0.5 mg PO DAILY RF: 0 Visit Report Forms: Smoking Cessation Stand-Alone Forms: Call Back Authorization, [facility], Work/School Release (Inpt) Discharge Orders: Discharge Order (Routine); Ordered 01/23/19 Ordered By: Nikita Zavala Admission Data Admit Date/Time: 01/20/19 16:51 Attending Provider: Nikita Zavala Admit Provider: Red Marroquin Primary Care Provider: PCP,NO Other Providers: Red Marroquin ; Ashly Vargas Service: Telemetry Other Interventions: Discharge Summary Assessment (RN) Last Done: 01/23/19 11:08
[2019-01-24] MEDS ORDERED: GABAPENTIN 600 MG TAB PO SCH (06:00)
== END 2019-01-23 12:10 | disposition home or self-care (01) | DRG 440 ==
LOC: ED 14:01 → 2S 16:51